=== PATIENT | female | born 1940 | race Caucasian/White ===

== ENCOUNTER → 2017-04-04 | Outpatient (CLI) | payer OTHER ==
[~2017-04-04] MED LIST: HYDROCODONE-APA1 TA1 PO; LISINOPRIL10 MG; MEDI-PATCH WIT1 EACH TP; SKELAXIN 800 M800 M1 PO; TRAMADOL 50 MG50 MG
== END ==
LOC: RAD 11:36
DX: M25.472 Effusion, left ankle (principal); M25.572 Pain in left ankle and joints of left foot

== ENCOUNTER 2017-06-06 10:10 | Emergency (ER) | payer OTHER ==
[~2017-06-06] VITALS: Ht 157.5 cm; Wt 72.6 kg
[2017-06-06 10:31] LABS: URINE BILIRUBIN NEGATIVE (Negative); URINE BLOOD NEGATIVE (Negative); URINE COLOR YELLOW; URINE GLUCOSE-RANDOM* NEGATIVE (Negative); URINE KETONES NEGATIVE (Negative); URINE NITRITE NEGATIVE (Negative); URINE PROTEIN (DIPSTICK) NEGATIVE (Negative); URINE SPECIFIC GRAVITY 1.015 (1.003-1.035); URINE UROBILINOGEN 0.2 E.U./dl (0.2-1.0)
[2017-06-06 10:46] LABS: ABSOLUTE NEUTROPHILS 5.7 thou/uL (1.4-8.2); BASOPHILS 1.3 % (0.0-2.0); EOSINOPHILS 1.8 % (0.0-3.0); HEMATOCRIT 42.8 % (37.0-47.0); HEMOGLOBIN 14.5 gm/dL (12.0-15.0); LYMPHOCYTES 21.1 % (24.0-44.0); MCH 33.7 pg (26.0-34.0); MCHC 33.8 g/dL (28.0-37.0); MCV 99.7 fL (80.0-100.0); MONOCYTES 10.4 % (1.0-8.0); PLATELET COUNT 361 thou/uL (150-400); POLYS 65.4 % (36.0-66.0); RBC 4.29 mil/uL (4.20-5.00); RDW 12.8 % (10.5-14.5); WBC 8.7 thou/uL (4.0-11.0)
[2017-06-06 10:48] LABS: MANUAL DIFF NO
[2017-06-06] MEDS ORDERED: LISINOPRIL-HCT1 EAC1 PO (10:55)
[2017-06-06 10:57] LABS: ANION GAP 8 mmol/L (7-16); BUN 12 mg/dL (7-18); CALCIUM 9.9 mg/dL (8.5-10.1); CHLORIDE 104 mmol/L (98-107); CO2 28 mmol/L (21-32); CREATININE 0.8 mg/dL (0.6-1.0); GLUCOSE 117 mg/dL (74-106); POTASSIUM 3.9 mmol/L (3.5-5.1); SODIUM 140 mmol/L (136-145)
[2017-06-06 11:03] LABS: ALKALINE PHOSPHATASE 83 U/L (46-116); DIRECT BILIRUBIN < 0.1 mg/dL (<0.1-0.3); SGOT 17 U/L (15-37); SGPT 18 U/L (30-65); TOTAL BILIRUBIN 0.2 mg/dL (<0.1-1.0); TOTAL PROTEIN 7.1 g/dL (6.4-8.2)
[2017-06-06] MEDS ORDERED: FLAGYL500 MG PO (14:35)
[2017-06-06] MEDS ORDERED: CIPRO500 MG PO (14:35)
== END 2017-06-06 14:36 | disposition home or self-care (01) ==
LOC: ER 10:10
PROVIDERS: Nurse Practitioner
DX: K57.92 Diverticulitis of intestine, part unspecified, without perforation or abscess without bleeding (principal); I10 Essential (primary) hypertension; Z90.711 Acquired absence of uterus with remaining cervical stump

== ENCOUNTER → 2019-12-06 | Outpatient (CLI) | payer OTHER ==
[~2019-12-06] MED LIST changes: +CIPRO500 MG PO; +FLAGYL500 MG PO; +LISINOPRIL-HCT1 EAC1 PO
== END ==
LOC: CAT 10:05
DX: Z13.6 Encounter for screening for cardiovascular disorders (principal); E78.00 Pure hypercholesterolemia, unspecified; I25.10 Atherosclerotic heart disease of native coronary artery without angina pectoris